=== PATIENT | male | born 1945 | race Caucasian/White ===

== ENCOUNTER 2016-04-27 06:30 | Emergency (ER) | payer MEDICARE, OTHER ==
[2016-04-27] MEDS ORDERED: LIDOCAINE 4% (PRES FREE) 5 ML AMP ONE (06:46)
[2016-04-27] MEDS ORDERED: DEXAMETHASONE SOD PHOS 10 MG/1 ML VIAL ONE (07:10)
== END 2016-04-27 08:28 | disposition short-term general hospital (02) ==
LOC: ED 06:30
DX: R09.89 Other specified symptoms and signs involving the circulatory and respiratory systems (principal); R06.1 Stridor
CPT/HCPCS: 99284; 31505 ×2; 96374; 99285; J1100